=== PATIENT | male | born 1995 | race Caucasian/White ===

== ENCOUNTER 2018-03-21 13:03 | Emergency (ER) | payer BC ==
[~2018-03-21] VITALS: Ht 175.3 cm; Wt 73.5 kg
[2018-03-21 13:22] VITALS: Ht 175.3 cm; Wt 73.5 kg
[2018-03-21 14:10] VITALS: BP 125/75
== END 2018-03-21 14:10 | disposition home or self-care (01) ==
LOC: ED 13:03
DX: J06.9 Acute upper respiratory infection, unspecified (principal); K14.8 Other diseases of tongue; F17.210 Nicotine dependence, cigarettes, uncomplicated

== ENCOUNTER 2018-10-25 13:13 | Emergency (ER) | payer BC ==
[~2018-10-25] VITALS: Ht 177.8 cm; Wt 81.2 kg
[2018-10-25 13:15] VITALS: Ht 177.8 cm; Wt 81.2 kg
[2018-10-25 14:55] VITALS: BP 141/87
== END 2018-10-25 14:55 | disposition home or self-care (01) ==
LOC: ED 13:13
DX: N48.89 Other specified disorders of penis (principal); M25.561 Pain in right knee; T43.625A Adverse effect of amphetamines, initial encounter; I10 Essential (primary) hypertension; Y92.89 Other specified places as the place of occurrence of the external cause
CPT/HCPCS: J7512